=== PATIENT | female | born 2000 | race African-American/Black ===

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

== ENCOUNTER 2025-09-02 19:00 | Inpatient (IN) | payer OTHER, SELFPAY ==
[2025-09-02 19:06] VITALS: BP 122/82; BP 95/62; PULSE 110; PULSE 94; RESP 16; TEMP 37.1; O2SAT 92; O2SAT 97; BMI 23.2
--- NOTE | 2025-09-02 19:58 | ED_ITS ---
HPI - Psych General Chief Complaint: Psychiatric Symptoms Stated Complaint: SI W/PLAN ANXIOUS, SCARED Time Seen by Provider: 09/02/25 19:13 History of Present Illness ED Provider: Fredi Garcia MD HPI Narrative: 25-year-old female no diagnosed medical or psychiatric history in the past she reports SI with a plan to triage tells me she feels more hopeless ?I just Wanna not be here ?. She drinks alcohol occasionally sometimes daily wine usually symptoms you mixed drinks. 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 She tells me her family is in [employer] or nearby but he is ?toxic? she can not confide in them she has no close friends she has ?abandonment issues ?no drug uterus. She reports that she has an implanted In the left arm that she feels as . She has no acute medical symptoms today no prior psychiatric hospitalizations, no prescribed medications at all Related Data Previous Rx's ?Medication ?Instructions ?Recorded sertraline 50 mg tablet 50 mg PO DAILY 30 days #30 t abs 09/06/25 trazodone 50 mg tablet 50 mg PO BEDTIME PRN Insomni a 30 09/06/25 days #30 tabs Allergies Allergy/AdvReac Type Severity Reaction Status Date / Time No Known Allergies Allergy Verified 09/02/25 19:41 [facility] Past Medical History Medical History (Updated 09/04/25 @ 16:17 by Chang James MD) Alcohol use disorder MDD (major depressive disorder), recurrent episode, moderate Social History Social History Household Members: Other Household Members Other:: Maternal Grandmother Housing: Apartment Do you presently have visiting nurse or other home services: No Alcohol intake: current Alcohol intake frequency: other Alcohol type: wine Patient Tobacco Use Status: Current everyday Tobacco user Years Smoked: 1 e-Cigarette/Vaping Use: Currently Using service: No Sexual orientation: Straight/Heterosexual Physical Exam 2 Exam: Exam: EXAM: Gen: Alert, awake, well appearing, well hydrated. Tearful sad Head: Atraumatic Eyes: Anicteric, Normal conjunctiva. ENT: Moist mucosa, no pallor. ? Neck: Supple. Skin: ?No observable rash or bruising on exposed or examined skin Respiratory: Breathing comfortably, No distress.Clear to auscultation bilaterally, symmetric chest expansion, No wheeze, rales, ronchi. Cardiovascular: Regular rate and rhythm. No murmurs or rub. Well perfused periphery, warm extremities. No edema. ? Abdominal: No focal tenderness. Soft, no objective distension. No palpable masses or obvious organomegaly. ?No guarding, no rebound tenderness or other peritoneal findings. : No flank tenderness. Neuro: Alert. Gross movement of all extremities intact. ? Psych: Calm. Cooperative. SI, tearful hopeless. Frequent alcohol use. No diagnosed psychiatric history or hospitalizations in the past. She is housed has income is self-employed. No good support system. No close friends or partners well dressed clean MSK: No grossly visible deformity. Vital signs: See flowsheet Vital Signs: Vital Signs: Last Vital Signs Temp 98.6 F 09/06/25 08:00 Pulse 72 09/06/25 08:00 Resp 18 09/04/25 20:00 BP 111/54 L 09/06/25 08:00 Pulse Ox 97 09/06/25 08:00 O2 Del Method Room Air 09/06/25 08:00 BMI result Body Mass Index 23.2 Medications Administered Discontinued Medications Generic Name Dose Route Start Last Admin Trade Name Freq PRN Reason Stop Dose Admin Diazepam 5 mg 09/03/25 01:25 09/03/25 01:29 Diazepam 5 Mg Tablet PO 09/03/25 01:26 5 mg ONCE ONE Administration Folic Acid 1 mg 09/04/25 09:00 09/06/25 09:30 Folic Acid 1 Mg Tablet PO 1 mg DAILY KAELYN Administration Hydroxyzine HCl 25 mg 09/03/25 12:01 09/04/25 21:08 Hydroxyzine Hcl 25 Mg Tablet PO 25 mg Q6H PRN Administration mild anxiety Lorazepam 1 mg 09/03/25 12:01 09/03/25 22:23 Lorazepam 1 Mg Tablet PO 1 mg Q2H PRN Administration CIWA 6-10 Melatonin 6 mg 09/03/25 01:25 09/03/25 01:29 Melatonin 3 Mg Tablet PO 09/03/25 01:26 6 mg ONCE ONE Administration Olanzapine 5 mg 09/03/25 12:01 09/04/25 21:08 Olanzapine 5 Mg Tablet PO 5 mg TID PRN Administration agitation Sertraline HCl 25 mg 09/05/25 20:55 09/06/25 09:30 Sertraline Hcl 25 Mg Tablet PO 25 mg DAILY KAELYN Administration Thiamine HCl 100 mg 09/04/25 09:00 09/06/25 09:30 Thiamine Hcl 100 Mg Tablet PO 100 mg DAILY KAELYN Administration Trazodone HCl 50 mg 09/03/25 12:01 09/05/25 22:59 Trazodone Hcl 50 Mg Tablet PO 50 mg BEDTIME MRX1 PRN Administration Insomnia Medical Decision Making Medical Decision Making MDM Narrative: Medical Decision Makin-year-old female with depression , suicidal ideation. Medical clearance. Alcohol seems to be an issue but she is not acutely intoxicated and I see no clinical signs of withdrawal syndrome. Check lab work for electrolyte derangement or other actionable finding. No fever no vital sign abnormality. Behavioral health consult care team Preliminary Favored Differential Diagnosis: Depression, SI among additional considered etiologies Testing Interpreted Independently: ?See below for details Radiology or Lab testing Results Reviewed: ?See below for details Consults: Behavioral health team Independent Historians/External Chart Reviews: ?See below for details Social Determinants of Health Impacting MDM/Planning: ?See below for details Lab Data MDM Lab Attestation statement: I reviewed the patient's lab results. 09/02/25 19:57 09/04/25 09:51 Labs: Lab Results 09/02/25 09/02/25 Range/Units 19:56 19:57 WBC 5.6 (4.8-10.8) X10*3/uL RBC 4.70 (4.20-5.50) X10*6/uL Hgb 14.9 (12.0-16.0) g/dl Hct 43.3 (37.0-47.0) % MCV 92.1 (80.0-98.0) fL MCH 31.7 (27.0-33.0) pg MCHC 34.4 (31.0-35.0) g/dl RDW 12.2 (11.0-16.0) % Plt Count 358 (160-400) X10*3/uL MPV 8.9 L (9.4-12.3) fL Immature Gran % (Auto) 0.2 (0.0-0.4) % Neut % (Auto) 51.5 (45-73) % Lymph % (Auto) 39.4 (20-40) % [place] % (Auto) 8.0 (2-11) % Eos % (Auto) 0.4 (0-4) % Baso % (Auto) 0.5 (0-2) % Lymph # (Auto) 2.2 (1.2-4.9) X10*3/uL [place] # (Auto) 0.5 (0.1-1.2) X10*3/uL Eos # (Auto) 0.0 (0.0-0.4) X10*3/uL Baso # (Auto) 0.0 (0.0-0.2) X10*3/uL Abs Immat Gran (auto) 0.01 (0.00-0.03) X10*3/uL Absolute Neuts (auto) 2.9 (2.0-8.3) x10*3/uL Absolute Nucleated RBC 0.000 (0.0-0.012) X10*3/uL Nucleated RBC % (auto) 0.0 (0.0-0.2) /100WBC Sodium 141 (135-145) mmol/L Potassium 3.4 (3.3-5.1) mmol/L Chloride 107 (96-108) mmol/L Carbon Dioxide 21 L (22-29) mmol/L Anion Gap 16 (12-20) BUN 4 L (9-16) mg/dL Creatinine 0.60 (0.5-1.4) mg/dL Estim Creat Clear Calc 125.9 Estimated GFR > 60 Random Glucose 111 (60-115) mg/dL Calcium 9.4 (8.4-10.2) mg/dL Total Bilirubin 0.3 (0.0-1.0) mg/dL AST 30 (5-31) U/L ALT 41 H (0-31) U/L Alkaline Phosphatase 65 (39-117) U/L Total Protein 8.2 H (6.5-8.0) g/dL Albumin 5.0 (3.5-5.0) g/dL Urine Color Yellow Urine Appearance Clear Urine pH 6.5 (5.0-9.0) Ur Specific [place] <= 1.005 (1.005-1.025) Urine Protein Negative (Neg-Trace) mg/dL Urine Glucose (UA) Negative (Negative) mg/dL Urine Ketones Negative (Negative) mg/dL Urine Blood Negative (Negative) Urine Nitrite Negative (Negative) Ur Leukocyte Esterase Trace H (Negative) Urine RBC 0-2 (0-2) /HPF Urine WBC 0-5 (0-5) /HPF Ur Squamous Epith Cells 3-5 (0-2) /HPF Urine Bacteria Trace (None Seen) Hyaline Casts 0-2 (0-2) /LPF Urine Test NEGATIVE (NEGATIVE) Urine Opiates Screen Not Detected (Not Detect) Ur Buprenorphine Scrn Not Detected (Not Detect) ng/mL Ur Oxycodone Screen Not Detected (Not Detect) ng/mL Urine Methadone Screen Not Detected (Not Detect) ng/mL Urine Fentanyl Screen Not Detected (Not Detect) Ur Barbiturates Screen Not Detected (Not Detect) Ur Phencyclidine Scrn Not Detected (Not Detect) Ur Amphetamines Screen Not Detected (Not Detect) U Benzodiazepines Scrn Not Detected (Not Detect) Urine Cocaine Screen Not Detected (Not Detect) U Marijuana (THC) Screen Not Detected (Not Detect) Ethyl Alcohol 241 mg/dL Discharge Plan Discharge Clinical Impression: Suicidal ideation Patient Disposition: Admitted As Inpatient Interventions: Admission Worksheet (ED) Last Done: 09/03/25 14:07 Discharge Date/Time: 09/03/25 14:25
[2025-09-02 20:04] LABS: MANUAL DIFF FLAG NO
[2025-09-02 20:08] LABS: Appearance Urine Clear; Glucose Urine UA Negative (Negative); Hematocrit 43.3 % (37.0-47.0); Hemoglobin 14.9 g/dl (12.0-16.0); Imm Gran Abs Auto 0.01 X10*3/uL (0.00-0.03); Imm Gran Pct Auto 0.2 % (0.0-0.4); Lymphocytes Absolute Auto 2.2 X10*3/uL (1.2-4.9); Mean Corpuscular HGB Conc 34.4 g/dl (31.0-35.0); Mean Corpuscular Hemoglobin 31.7 pg (27.0-33.0); Mean Corpuscular Volume 92.1 fL (80.0-98.0); NRBC Abs Auto 0.000 X10*3/uL (0.0-0.012); NRBC Pct Auto 0.0 /100WBC (0.0-0.2); PH 6.5 (5.0-9.0); Platelet Count 358 X10*3/uL (160-400); Red Blood Count 4.70 X10*6/uL (4.20-5.50); Specific Gravity - Urine <= 1.005 (1.005-1.025); UMIC TRIGGER UACC YES; White Blood Count 5.6 X10*3/uL (4.8-10.8)
[2025-09-02 20:09] LABS: UPreg QC Valid YES
[2025-09-02 20:19] LABS: Cannabinoid Screen Urine Not Detected (Not Detect)
[2025-09-02 20:22] LABS: Alanine Aminotransferase 41 U/L (0-31); Albumin Level 5.0 g/dL (3.5-5.0); Alkaline Phosphatase 65 U/L (39-117); Anion Gap 16 (12-20); Aspartate Amino Transferase 30 U/L (5-31); Blood Urea Nitrogen 4 mg/dL (9-16); Calcium 9.4 mg/dL (8.4-10.2); Carbon Dioxide 21 mmol/L (22-29); Chloride 107 mmol/L (96-108); Creatinine Clr Calc Pharmacy 125.9; Estimated Glomerular Filt Rate > 60; Potassium 3.4 mmol/L (3.3-5.1); Sodium 141 mmol/L (135-145); Total Protein 8.2 g/dL (6.5-8.0)
--- OUTSIDE RECORDS SUMMARY | 2025-09-02 21:17 | XMS_ITS | Clinical Summary ---
Author Organization [facility] Address [address] [place] [address] Phone Care Team Providers Care Door To Door Sales Representative Name Role Phone Physician, No Pcp Primary Care Provider Unavaila ble Allergies No known active allergies Medications No known medications Social History Tobacco Use Types Packs/Day Years Used Date Smoking Tobacco: Never Smokeless Tobacco: Never Tobacco Cessation:Counseling Given: Not Answered Alcohol Use Standard Drinks/Week Comments Not Currently 0 (1 standard drink = 0.6 oz pur e alcohol) Comments Unknown Sex and Gender Information Value Date Recorded Sex Assigned at Not on file Legal Sex Female 1:48 PM EDT Gender Identity Not on file Sexual Orientation Not on file Obstetrics History Last Filed Vital Signs Vital Sign Reading Time Taken Comments Blood Pressure 116/71 03/02/2025 1:52 PM EDT Pulse 67 03/02/2025 1:52 PM EDT Temperature 36.5 C (97.7 F) 03/02/2025 1:52 PM EDT Respiratory Rate 17 03/02/2025 1:52 PM EDT Oxygen Saturation 97% 03/02/2025 1:52 PM EDT Inhaled Oxygen Concentration - - Weight 60.3 kg (133 lb) 03/02/2025 1:52 PM EDT Height 162.6 cm (5' 4 ) 03/02/2025 1:52 PM EDT Body Mass Index 22.83 03/02/2025 1:52 PM EDT Plan of Treatment Health Maintenance Due Date Last Done Comments Gonorrhea/Chlamydia Screening 2002 HPV Vaccines (1 - 3-dose series) 2017 Meningococcal B Vaccine (1 o f 2 - Standard) 2018 DTaP,Tdap,and Td Vaccines (1 - Tdap) 2021 Hepatitis B Vaccines (1 of 3 - 19+ 3-dose series) 2021 Cervical Cancer Screening: P ap Smear 2023 Depression Screening 11/04/2024 HIV Screening 03/03/2025 Hepatitis C Screening 03/03/2025 Social Influencers of Health Screening 03/03/2025 COVID-19 Vaccine (1 - 2023-2 5 season) 2025 Influenza Vaccine (#1) 2025 RSV Immunization Adult Patie nts (1 - 1-dose 75+ series) 2077 HIB Vaccines Aged Out No longer eligi ble based on patient's age to complete this topic Hepatitis A Vaccines Aged Out No long er eligible based on patient's age to complete this topic IPV Vaccines Aged Out No longer eligi ble based on patient's age to complete this topic MMR Vaccines Aged Out No longer eligi ble based on patient's age to complete this topic Meningococcal ACWY Vaccine Aged Out N o longer eligible based on patient's age to complete this topic Pneumococcal Vaccine: Pediat rics (0 to 5 Years) and At-Risk Patients (6 to 49 Years) Aged Out No longer eligible b ased on patient's age to complete this topic RSV Immunization Patients Un adria 20 months Aged Out No longer eligible b ased on patient's age to complete this topic Varicella Vaccines Aged Out No longer eligible based on patient's age to complete this topic Insurance MEDICAID - [place] Care Teams Door To Door Sales Representative Relationship Specialty Start Date End Date Physician, No Pcp PCP - General 03/02/25
[2025-09-02 21:55] VITALS: RESP 17
--- NOTE | 2025-09-03 01:36 | PC.NURSE ---
Arrived to POD for exchange specialist. Switched into appropriate attire and belongings secured in locker #5. Safety check completed with Security present. When asked what brought her in, patient stated For the last two weeks, I've been struggling with my depression and anxiety. I just don't want to live anymore, I'm really overwhelmed. I was very close to crashing my car and killing myself, but I thought about my grandmother-she is my biggest support. Endorses +SI with plan/intent. Denies HI/AVH. Denies current pain. Denies substance use. Denies current medication. Endorses daily alcohol use and states I drink a bottle of wine a day. Patient reports last drink was 2 buzzballs this AM on 09/02. Patient endorses poor sleep d/t racing thoughts and states I've struggled with this since I was a child. 15 min safety checks ongoing. CIWA ongoing, not currently scoring. Denies hx of wd/sz. Plan of care ongoing...
[2025-09-03 06:14] VITALS: BP 105/63; PULSE 77; RESP 16; TEMP 37; O2SAT 99
--- NOTE | 2025-09-03 08:02 | PC.NURSE ---
Assumed care, report received. Pt is currently sleeping, safety is maintained and she is brought breakfast.
[2025-09-03 10:20] VITALS: BP 105/66; PULSE 90; TEMP 37.2; O2SAT 96
[2025-09-03 14:30] VITALS: BP 110/74; PULSE 69; TEMP 36.6; O2SAT 99
--- NOTE | 2025-09-03 14:47 | HO.PM.IMCN ---
History of Present Illness Data of Consult Service Date: 09/03/25 Primary Care Provider: Unknown Physician HPI Reason for consult: Medical consult 25 year no past medical or psychiatric history presents with suicide open. Initial workup reveals no leukocytosis, no anemia. No electrolyte imbalances no evidence of kidney impairment, ALT slightly elevated at 41. Urine without evidence of infection. Tox screen negative, BAL 241 on admit. No evidence of withdrawal. On exam she is afraid and tearful. Denies any medical concerns. Review of Systems Review of Systems: Denies any shortness of breath, chest pain, palpitations, dizziness, lightheadedness, headaches, dysuria, abdominal pain or discomfort, nausea, vomiting or diarrhea. Denies chills, body aches, muscle aches, fatigue or weight loss. [facility] Social History Alcohol intake: current Alcohol intake frequency: other Alcohol type: wine Smoked in Last 30 Days: Yes Use of substances other than those prescribed or required for medical reasons: No Advance Directives: No Advance Directives Information Provided: No Do you have a plan to hurt others: No Plan Meds Allergies Allergy/AdvReac Type Severity Reaction Status Date / Time No Known Allergies Allergy Verified 09/02/25 19:41 Active Medications: Current Medications Acetaminophen (Acetaminophen 325 Mg Tablet) 650 mg PO Q6H PRN PRN Reason: Headache/Pain, Scale 1-10 Al Hydroxide/Mg Hydroxide (Magnesium Hydrox/Alum Hydrox 30 Ml Oral.Susp) 30 ml PO Q6H PRN PRN Reason: Heartburn/Nausea Folic Acid (Folic Acid 1 Mg Tablet) 1 mg PO DAILY KAELYN Hydroxyzine HCl (Hydroxyzine Hcl 25 Mg Tablet) 25 mg PO Q6H PRN PRN Reason: mild anxiety Lorazepam (Lorazepam 1 Mg Tablet) 1 mg PO Q2H PRN PRN Reason: CIWA 6-10 Lorazepam (Lorazepam 1 Mg Tablet) 2 mg PO Q2H PRN PRN Reason: CIWA 11 and above Magnesium Hydroxide (Milk Of Magnesia 30 Ml Oral.Susp) 30 ml PO DAILY PRN PRN Reason: Constipation Nicotine (Nicotine 21 Mg Patch.Td24) 21 mg TRANSDERMA DAILY PRN PRN Reason: smoking cessation Nicotine Polacrilex (Nicotine Polacrilex 2 Mg Gum) 4 mg BUCCAL Q2H PRN PRN Reason: Nicotine Cravings Olanzapine (Olanzapine 5 Mg Tablet) 5 mg PO TID PRN PRN Reason: agitation Thiamine HCl (Thiamine Hcl 100 Mg Tablet) 100 mg PO DAILY KAELYN Trazodone HCl (Trazodone Hcl 50 Mg Tablet) 50 mg PO BEDTIME MRX1 PRN PRN Reason: Insomnia Home Medications ?Medication ?Instructions ?Recorded ?Confirmed ?Last Taken ?Type No Known Home Meds 09/02/25 09/02/25 Unknown History Physical Exam Vital Signs and Narrative: Vital Signs: Last Vital Signs Temp 98.9 F 09/03/25 10:20 Pulse 90 09/03/25 10:20 Resp 16 09/03/25 06:14 BP 105/66 09/03/25 10:20 Pulse Ox 96 09/03/25 10:20 O2 Del Method Room Air 09/03/25 10:20 BMI result Body Mass Index 23.2 Alert and oriented X3, calm and cooperative. Answers questions. Tearful Neuro: CN II-X11 intact, no deficits, visual acuity intact EYES: PERRLA, EOM intact ENT: Hearing intact, MMM Cardiac: S1 S2 RRR, No ectopy Pulmonary: lungs clear to auscultation, No increased WOB. Abdominal: BS active in all 4 quadrants, no guarding or tenderness MSK: Strength 5/5 upper and lower extremities : Deferred Extremities: No edema in lower extremities Psych: Mood stable, Quiet and cooperative. Skin: Warm and dry, Intact Results Labs 09/02/25 19:57 09/02/25 19:56 Labs: Laboratory Results - last 24 hr 09/02/25 09/02/25 19:56 19:57 MCV 92.1 MCH 31.7 MCHC 34.4 RDW 12.2 Plt Count 358 MPV 8.9 L Immature Gran % (Auto) 0.2 Neut % (Auto) 51.5 Lymph % (Auto) 39.4 [place] % (Auto) 8.0 Eos % (Auto) 0.4 Baso % (Auto) 0.5 Lymph # (Auto) 2.2 [place] # (Auto) 0.5 Eos # (Auto) 0.0 Baso # (Auto) 0.0 Abs Immat Gran (auto) 0.01 Absolute Neuts (auto) 2.9 Absolute Nucleated RBC 0.000 Nucleated RBC % (auto) 0.0 Anion Gap 16 Estim Creat Clear Calc 125.9 Estimated GFR > 60 Random Glucose 111 Calcium 9.4 Total Bilirubin 0.3 AST 30 ALT 41 H Alkaline Phosphatase 65 Total Protein 8.2 H Albumin 5.0 Urine Color Yellow Urine Appearance Clear Urine pH 6.5 Ur Specific [place] <= 1.005 Urine Protein Negative Urine Glucose (UA) Negative Urine Ketones Negative Urine Blood Negative Urine Nitrite Negative Ur Leukocyte Esterase Trace H Urine RBC 0-2 Urine WBC 0-5 Ur Squamous Epith Cells 3-5 Urine Bacteria Trace Hyaline Casts 0-2 Urine Test NEGATIVE Urine Opiates Screen Not Detected Ur Buprenorphine Scrn Not Detected Ur Oxycodone Screen Not Detected Urine Methadone Screen Not Detected Urine Fentanyl Screen Not Detected Ur Barbiturates Screen Not Detected Ur Phencyclidine Scrn Not Detected Ur Amphetamines Screen Not Detected U Benzodiazepines Scrn Not Detected Urine Cocaine Screen Not Detected U Marijuana (THC) Screen Not Detected Ethyl Alcohol 241 Assessment and Plan (1) Suicide ideation: Status: Acute Plan 25-year-old female with a past medical history of EtOH use, no significant medical or psychiatric history presented to the ED with suicidal ideation. Suicidal ideation/? depression Treatment per psychiatric team Thank you for allowing me to participate in the care of this patient. Will follow with you, please notify medical provider with any changes in condition or concerns.
--- NOTE | 2025-09-03 18:50 | PC.ADMIT ---
Ms. Mayi Lou was admitted from the POD to M5, room 516-2 for suicidal ideation at 2pm.? She is a 25 year old SBF and this is her first psychiatric admission. According to the Crisis report and the nurse to nurse in the POD (Maribel), she has been depressed with suicidal thoughts to crash her car, and has had persistent feelings of hopelessness and worthlessness and a sense of helplessness around her ability to make change in her life.? Precipitant was the year anniversary of her mother?s on 08/13/24.? Her mother from complications from her substance abuse a year ago.? She felt she, ?had to be strong?, for her family and never processed her mother?s . She said she is no longer a support and has been drinking a bottle of wine daily and feels like a burden to her family and just wants, ?to be at peace.? Upon arrival on the unit, Mayi was cooperative with the safety and skin check, which was unremarkable. She denied active suicidal ideation and was only having, ?thoughts?. She also denied HI and AVH.? She was displeased that she was sectioned here and felt they misunderstood what she was trying to say. She declined to sign a CV and is now on a 12B with 15 minute checks. 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 She was allowed to send them a group text cancelling the appointments and declined to get any other contact numbers from her phone. Mayi lives with her maternal Grandmother who urged her to contact crisis. Mayi denies any medical issues past or present and has no known allergies. She denies other substance use other than alcohol. She does vape nicotine and has for one year.? She does not want NRT and refused Quitworks.? She declined the influenza vaccine. Mayi is on no medications and only recently obtained health insurance. She did not know the name of who will be her new PCP but does have a first appointment with them on 09/17. She does not have a therapist.
[2025-09-03 20:00] VITALS: BP 117/69; PULSE 64; RESP 18; TEMP 36.5; O2SAT 99
[2025-09-04 08:00] VITALS: BP 104/55; PULSE 76; TEMP 37.1; O2SAT 99
--- NOTE | 2025-09-04 09:21 | P.HPPS_ITS ---
HPI Date of Service: 09/04/25 Chief Complaint: SI Sources of Information: patient interviewed, chart reviewed and crisis/core team assessment reviewed HPI Subjective Notes: Frias Warning, Conditional Voluntary and Section 12B Narrative: Patient is a 25-year-old female with history of anxiety and depression, alcohol abuse who presents for making suicidal type statements while intoxicated. 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 She said this past month acharya the 1 year anniversary of her mother's and so her depression increased. She says that her drinking probably increased as well and she drinks about a bottle of wine 5/7 days a week. Patient reports this past week she was very sad and had been drinking and felt like she needed to talk to someone and get a therapist. She called crisis and then drove herself there intoxicated. While there she made some suicidal-type comment about crashing her car, not wanting to be here anymore and was thus taken to the emergency room and put on a section 12. Patient acknowledged she may have said something like this while she was drunk and maybe she did have some harmful thoughts but says when you drink... Get overwhelmed you can think bad things... But is clear that she would never hurt herself in any way and has never been suicidal; she reiterates she just wanted someone to talk to, maybe spend the night...She said she just was hoping to get connected with a therapist and is aghast that she was psychiatrically admitted. Patient agrees that she could probably use an antidepressant medication. She will consider this. Denies any SI/HI/AVH. Denies any other drug use MSE: Pt is alert and oriented; behavior is cooperative and polite on approach; otherwise tearful, isolative; patient is not in distress; dressed in casual attire and well groomed; mood is described as depressed, anxious and affect congruent, downcast and tearful; eye contact appropriate; Speech is normal rate, volume and prosody and not pressured; psychomotor retardation present; thought process is organized and goal directed; Thought content is on tx and dealing with depression and anxiety; otherwise pertinent to relevant topics and without any delusional content, paranoid ideations or grandiosity; denies any SI/HI. Denies AVH and there is no evidence of perceptual disturbance. 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; she is anxious about having to cancel her clients Patient lives with her maternal grandmother Substance History: Drinks a bottle of wine 5/7 days a week Trauma History: Defer Diagnostics Vital Signs (24Hr): Vital Signs - 24 hr 09/03/25 10:20 09/03/25 14:30 09/03/25 20:00 Temperature 98.9 F 97.8 F 97.7 F Pulse Rate 90 69 64 Respiratory Rate 18 Blood Pressure 105/66 110/74 117/69 Pulse Oximetry 96 99 99 Oxygen Delivery Method Room Air Room Air Room Air BMI result Body Mass Index 23.2 Labs 09/02/25 19:57 09/04/25 09:51 Labs: Laboratory Results - last 48 hr 09/02/25 09/02/25 19:56 19:57 WBC 5.6 RBC 4.70 Hgb 14.9 Hct 43.3 MCV 92.1 MCH 31.7 MCHC 34.4 RDW 12.2 Plt Count 358 MPV 8.9 L Immature Gran % (Auto) 0.2 Neut % (Auto) 51.5 Lymph % (Auto) 39.4 White % (Auto) 8.0 Eos % (Auto) 0.4 Baso % (Auto) 0.5 Lymph # (Auto) 2.2 White # (Auto) 0.5 Eos # (Auto) 0.0 Baso # (Auto) 0.0 Abs Immat Gran (auto) 0.01 Absolute Neuts (auto) 2.9 Absolute Nucleated RBC 0.000 Nucleated RBC % (auto) 0.0 Sodium 141 Potassium 3.4 Chloride 107 Carbon Dioxide 21 L Anion Gap 16 BUN 4 L Creatinine 0.60 Estim Creat Clear Calc 125.9 Estimated GFR > 60 Random Glucose 111 Calcium 9.4 Total Bilirubin 0.3 AST 30 ALT 41 H Alkaline Phosphatase 65 Total Protein 8.2 H Albumin 5.0 Urine Color Yellow Urine Appearance Clear Urine pH 6.5 Ur Specific [place] <= 1.005 Urine Protein Negative Urine Glucose (UA) Negative Urine Ketones Negative Urine Blood Negative Urine Nitrite Negative Ur Leukocyte Esterase Trace H Urine RBC 0-2 Urine WBC 0-5 Ur Squamous Epith Cells 3-5 Urine Bacteria Trace Hyaline Casts 0-2 Urine Test NEGATIVE Urine Opiates Screen Not Detected Ur Buprenorphine Scrn Not Detected Ur Oxycodone Screen Not Detected Urine Methadone Screen Not Detected Urine Fentanyl Screen Not Detected Ur Barbiturates Screen Not Detected Ur Phencyclidine Scrn Not Detected Ur Amphetamines Screen Not Detected U Benzodiazepines Scrn Not Detected Urine Cocaine Screen Not Detected U Marijuana (THC) Screen Not Detected Ethyl Alcohol 241 Meds/Allergies Meds Home Medications ?Medication ?Instructions ?Recorded ?Confirmed ?Type No Known Home Meds 09/02/25 09/02/25 Hi story Allergies Allergies Allergy/AdvReac Type Severity Reaction Status Date / Time No Known Allergies Allergy Verified 09/02/25 19:41 Assessment & Plan Assessment & Plan (1) MDD (major depressive disorder), recurrent episode, moderate: Status: Acute Code(s): F33.1 - Major depressive disorder, recurrent, moderate (2) Alcohol use disorder: Status: Acute Code(s): F10.90 - Alcohol use, unspecified, uncomplicated Plan Patient is a 25-year-old female with history of anxiety and depression, alcohol abuse who presents for making suicidal type statements while intoxicated. 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 She said this past month acharya the 1 year anniversary of her mother's and so her depression increased. She says that her drinking probably increased as well and she drinks about a bottle of wine 5/7 days a week. Patient reports this past week she was very sad and had been drinking and felt like she needed to talk to someone and get a therapist. She called crisis and then drove herself there intoxicated. While there she made some suicidal-type comment about crashing her car, not wanting to be here anymore and was thus taken to the emergency room and put on a section 12. Patient acknowledged she may have said something like this while she was drunk and maybe she did have some harmful thoughts but says when you drink... Get overwhelmed you can think bad things... But is clear that she would never hurt herself in any way and has never been suicidal; she reiterates she just wanted someone to talk to, maybe spend the night...She said she just was hoping to get connected with a therapist and is aghast that she was psychiatrically admitted. Patient agrees that she could probably use an antidepressant medication. She will consider this. Denies any SI/HI/AVH. Denies any other drug use Formulation/clinical reasoning: Patient tearful and still wrapping her mind around the fact that she is on a locked psychiatric unit. Does not want to sign in. Says that she would not ready to discuss medications at will consider it and needs some time to just adjust to being on the unit. Patient denies any history of alcohol withdrawal Plan: Twelve B Q 15 minute checks CIWA for now Monitor Gather collateral Patient educated on: diagnosis, substance abuse and therapeutic strategies Informed Consent: understands and further education needed Reason for continued inpatient stay Substantial Risk for: rapid decompensation Statement Statement: I have reviewed the history and physical and performed a pertinent examination on my patient. No changes have occurred unless specified. If the History and Physical was not performed prior to admission, the Hospitalist's service will be consulted for completing the admission physical. Time Spent With Patient Time: Total time managing care of this patient today ____ minutes.
[2025-09-04 10:57] LABS: Hemoglobin A1C 67.4988 umol/L; Total Hemoglobin (HGBA1C) 2254.3140 umol/L
[2025-09-04 11:15] LABS: Albumin Level 4.2 g/dL (3.5-5.0); Alkaline Phosphatase 54 U/L (39-117); Anion Gap 14 (12-20); Aspartate Amino Transferase 26 U/L (5-31); Blood Urea Nitrogen 7 mg/dL (9-16); Calcium 9.3 mg/dL (8.4-10.2); Carbon Dioxide 24 mmol/L (22-29); Chloride 106 mmol/L (96-108); Cholesterol 203 mg/dL (<200); Creatinine Clr Calc Pharmacy 96.8; Estimated Glomerular Filt Rate > 60; HDL Cholesterol 75 mg/dL (>40); Potassium 3.5 mmol/L (3.3-5.1); Sodium 140 mmol/L (135-145); Total Protein 6.8 g/dL (6.5-8.0); Triglycerides 84 mg/dL (<150)
[2025-09-04 11:32] LABS: Alanine Aminotransferase 29 U/L (0-31)
[2025-09-04 12:00] VITALS: BP 107/54; PULSE 78
[2025-09-04 20:00] VITALS: BP 113/60; PULSE 77; RESP 18; TEMP 36.6; O2SAT 100
[2025-09-05 08:16] VITALS: BP 101/50; PULSE 58; TEMP 36.2; O2SAT 99
--- NOTE | 2025-09-05 10:46 | HO.PSYCHPN ---
Subjective Subjective Date of Service: 09/05/25 Reason For Visit: SI Interim History: Met with patient; discussed with team Patient reports that she appreciates conversation yesterday and has we thought about things and agrees that it was a good idea for her to come to the inpatient hospital. She still hopes to discharge soon but agrees that she is at a crossroads for several things, worsening depression versus getting treatment, alcoholism versus stability. Patient notices how it is affecting her relationships and that she has a hard time making friendships and keeping them; also that her depression and drinking have interfered with work. Patient shared about her history of depression which includes episodes where depressed and can be severe; seems to have started in high school and continued with episodes lasting 1-2 weeks typically every month. Not a lot of obvious anxiety but shared about going up with mother who was an alcoholic and father who was absent and how she feels she has abandonment issues; she is very grateful for her maternal grandmother with whom she feels is her mother figure and with whom she still lives. Discussed medications, risks/side effects and patient agrees to start on Zoloft. Substance abuse treatment and risks discussed with patient who at this time patient declines MAT or help with outpt treatment options including programs; instead patient is choosing to work out sobriety on own MSE Pt is alert and oriented; behavior is cooperative, friendly and calm; patient is not in distress; dressed in casual attire, well-groomed; mood is described as better and affect congruent; eye contact appropriate; Speech is normal rate, volume and prosody and not pressured; no psychomotor agitation/retardation present; thought process is organized and goal directed; Thought content is on tx; otherwise pertinent to relevant topics and without any delusional content, paranoid ideations or grandiosity; denies any SI/HI. Denies AVH and there is no evidence of perceptual disturbance. Patients insight and judgment appear intact. Diagnostics Vital Signs (24Hr): Vital Signs - 24 hr 09/04/25 12:00 09/04/25 20:00 09/05/25 08:16 Temperature 98 F 97.1 F Pulse Rate 78 77 58 Respiratory Rate 18 Blood Pressure 107/54 L 113/60 101/50 L Pulse Oximetry 100 99 Oxygen Delivery Method Room Air Room Air BMI result Body Mass Index 23.2 Labs 09/02/25 19:57 09/04/25 09:51 Labs: Laboratory Results - last 48 hr 09/04/25 09:51 Sodium 140 Potassium 3.5 Chloride 106 Carbon Dioxide 24 Anion Gap 14 BUN 7 L Creatinine 0.78 Estim Creat Clear Calc 96.8 Estimated GFR > 60 Random Glucose 153 H Estimat Average Glucose 94 Hemoglobin A1c % 4.9 Calcium 9.3 Total Bilirubin 0.5 AST 26 ALT 29 Alkaline Phosphatase 54 Total Protein 6.8 Albumin 4.2 Triglycerides 84 Cholesterol 203 H LDL Cholesterol, Calc 112 H HDL Cholesterol 75 TSH 0.74 Medications Medications Current Medications Acetaminophen (Acetaminophen 325 Mg Tablet) 650 mg PO Q6H PRN PRN Reason: Headache/Pain, Scale 1-10 Al Hydroxide/Mg Hydroxide (Magnesium Hydrox/Alum Hydrox 30 Ml Oral.Susp) 30 ml PO Q6H PRN PRN Reason: Heartburn/Nausea Folic Acid (Folic Acid 1 Mg Tablet) 1 mg PO DAILY COUNT INCLUDES THE [facility] Last Admin: 09/05/25 09:04 Dose: 1 mg Hydroxyzine HCl (Hydroxyzine Hcl 25 Mg Tablet) 25 mg PO Q6H PRN PRN Reason: mild anxiety Last Admin: 09/04/25 21:08 Dose: 25 mg Lorazepam (Lorazepam 1 Mg Tablet) 1 mg PO Q2H PRN PRN Reason: CIWA 6-10 Last Admin: 09/03/25 22:23 Dose: 1 mg Lorazepam (Lorazepam 1 Mg Tablet) 2 mg PO Q2H PRN PRN Reason: CIWA 11 and above Magnesium Hydroxide (Milk Of Magnesia 30 Ml Oral.Susp) 30 ml PO DAILY PRN PRN Reason: Constipation Nicotine (Nicotine 21 Mg Patch.Td24) 21 mg TRANSDERMA DAILY PRN PRN Reason: smoking cessation Nicotine Polacrilex (Nicotine Polacrilex 2 Mg Gum) 4 mg BUCCAL Q2H PRN PRN Reason: Nicotine Cravings Olanzapine (Olanzapine 5 Mg Tablet) 5 mg PO TID PRN PRN Reason: agitation Last Admin: 09/04/25 21:08 Dose: 5 mg Thiamine HCl (Thiamine Hcl 100 Mg Tablet) 100 mg PO DAILY KAELYN Last Admin: 09/05/25 09:04 Dose: 100 mg Trazodone HCl (Trazodone Hcl 50 Mg Tablet) 50 mg PO BEDTIME MRX1 PRN PRN Reason: Insomnia Last Admin: 09/04/25 21:08 Dose: 50 mg Allergies Allergies Allergy/AdvReac Type Severity Reaction Status Date / Time No Known Allergies Allergy Verified 09/02/25 19:41 Assessment & Plan Assessment & Plan (1) MDD (major depressive disorder), recurrent episode, moderate: Status: Acute Code(s): F33.1 - Major depressive disorder, recurrent, moderate (2) Alcohol use disorder: Status: Acute Code(s): F10.90 - Alcohol use, unspecified, uncomplicated Plan Patient is a 25-year-old female with history of anxiety and depression, alcohol abuse who presents for making suicidal type statements while intoxicated. 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 She said this past month acharya the 1 year anniversary of her mother's and so her depression increased. She says that her drinking probably increased as well and she drinks about a bottle of wine 5/7 days a week. Patient reports this past week she was very sad and had been drinking and felt like she needed to talk to someone and get a therapist. She called crisis and then drove herself there intoxicated. While there she made some suicidal-type comment about crashing her car, not wanting to be here anymore and was thus taken to the emergency room and put on a section 12. Patient acknowledged she may have said something like this while she was drunk and maybe she did have some harmful thoughts but says when you drink... Get overwhelmed you can think bad things... But is clear that she would never hurt herself in any way and has never been suicidal; she reiterates she just wanted someone to talk to, maybe spend the night...She said she just was hoping to get connected with a therapist and is aghast that she was psychiatrically admitted. Patient agrees that she could probably use an antidepressant medication. She will consider this. Denies any SI/HI/AVH. Denies any other drug use Formulation/clinical reasoning: Patient tearful and still wrapping her mind around the fact that she is on a locked psychiatric unit. Does not want to sign in. Says that she would not ready to discuss medications at will consider it and needs some time to just adjust to being on the unit. Patient denies any history of alcohol withdrawal 09/05 Patient reports that she appreciates conversation yesterday and has we thought about things and agrees that it was a good idea for her to come to the inpatient hospital. She still hopes to discharge soon but agrees that she is at a crossroads for several things, worsening depression versus getting treatment, alcoholism versus stability. Patient notices how it is affecting her relationships and that she has a hard time making friendships and keeping them; also that her depression and drinking have interfered with work. Patient shared about her history of depression which includes episodes where depressed and can be severe; seems to have started in high school and continued with episodes lasting 1-2 weeks typically every month. Not a lot of obvious anxiety but shared about going up with mother who was an alcoholic and father who was absent and how she feels she has abandonment issues; she is very grateful for her maternal grandmother with whom she feels is her mother figure and with whom she still lives. Discussed medications, risks/side effects and patient agrees to start on Zoloft. 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 Patient expresses gratitude for help and looking forward to meeting with social services manager tomorrow who can set up for aftercare. Otherwise she is hoping to discharge as soon as possible; typewriter assembler agrees that patient patient is appropriate to return to the community for treatment will proceed with discharge plans tomorrow. Plan: Twelve B Q 15 minute checks Start Zoloft 25 mg CIWA for now Monitor Gather collateral Patient educated on: diagnosis, medication risk/benefits, substance abuse and therapeutic strategies Informed Consent: understands Reason for continued inpatient stay Substantial Risk for: stable for discharge Time Spent With Patient Time: Total time managing care of this patient today ____ minutes.
[2025-09-05 20:00] VITALS: BP 100/57; PULSE 70; TEMP 36.8; O2SAT 100
[2025-09-06 08:00] VITALS: BP 111/54; PULSE 72; TEMP 37; O2SAT 97
--- NOTE | 2025-09-06 11:36 | P.DS_ITS ---
DS: Providers Provider Date of Service: 09/06/25 Date of admission: 09/03/25 12:01 Date of discharge: 09/06/25 Primary care physician: Unknown Physician Attending physician on admission: Chang James Attending physician on discharge: Chang James DS: Diagnosis Discharge Diagnosis (1) MDD (major depressive disorder), recurrent episode, moderate: Status: Acute (2) Alcohol use disorder: Status: Acute DS: Medications Discharge Medications Home Medications: Previous Rx's ?Medication ?Instructions ?Recorded sertraline 50 mg tablet 50 mg PO DAILY 30 days #30 t abs 09/06/25 trazodone 50 mg tablet 50 mg PO BEDTIME PRN Insomni a 30 09/06/25 days #30 tabs Mental Status Exam Mental Status Exam Narrative: Pt is alert and oriented; behavior is cooperative, friendly and calm; patient is not in distress; dressed in casual attire and well-groomed; mood is described as better and affect congruent; eye contact appropriate; Speech is normal rate, volume and prosody and not pressured; no psychomotor agitation/retardation present; thought process is organized and goal directed; Thought content is on tx; otherwise pertinent to relevant topics and without any delusional content, paranoid ideations or grandiosity; denies any SI/HI. Denies AVH and there is no evidence of perceptual disturbance. Patients insight and judgment fair Data Data Completed and Pending Completed studies during hospitalization [Text1]: 09/02/25 09/02/25 09/04/25 19:56 19:57 09:51 WBC 5.6 RBC 4.70 Hgb 14.9 Hct 43.3 MCV 92.1 MCH 31.7 MCHC 34.4 RDW 12.2 Plt Count 358 MPV 8.9 L Immature Gran % (Auto) 0.2 Neut % (Auto) 51.5 Lymph % (Auto) 39.4 Henderson % (Auto) 8.0 Eos % (Auto) 0.4 Baso % (Auto) 0.5 Lymph # (Auto) 2.2 Henderson # (Auto) 0.5 Eos # (Auto) 0.0 Baso # (Auto) 0.0 Abs Immat Gran (auto) 0.01 Absolute Neuts (auto) 2.9 Absolute Nucleated RBC 0.000 Nucleated RBC % (auto) 0.0 Sodium 141 140 Potassium 3.4 3.5 Chloride 107 106 Carbon Dioxide 21 L 24 Anion Gap 16 14 BUN 4 L 7 L Creatinine 0.60 0.78 Estim Creat Clear Calc 125.9 96.8 Estimated GFR > 60 > 60 Random Glucose 111 153 H Estimat Average Glucose 94 Hemoglobin A1c % 4.9 Calcium 9.4 9.3 Total Bilirubin 0.3 0.5 AST 30 26 ALT 41 H 29 Alkaline Phosphatase 65 54 Total Protein 8.2 H 6.8 Albumin 5.0 4.2 Triglycerides 84 Cholesterol 203 H LDL Cholesterol, Calc 112 H HDL Cholesterol 75 TSH 0.74 Urine Color Yellow Urine Appearance Clear Urine pH 6.5 Ur Specific Stephenson <= 1.005 Urine Protein Negative Urine Glucose (UA) Negative Urine Ketones Negative Urine Blood Negative Urine Nitrite Negative Ur Leukocyte Esterase Trace H Urine RBC 0-2 Urine WBC 0-5 Ur Squamous Epith Cells 3-5 Urine Bacteria Trace Hyaline Casts 0-2 Urine Test NEGATIVE Urine Opiates Screen Not Detected Ur Buprenorphine Scrn Not Detected Ur Oxycodone Screen Not Detected Urine Methadone Screen Not Detected Urine Fentanyl Screen Not Detected Ur Barbiturates Screen Not Detected Ur Phencyclidine Scrn Not Detected Ur Amphetamines Screen Not Detected U Benzodiazepines Scrn Not Detected Urine Cocaine Screen Not Detected U Marijuana (THC) Screen Not Detected Ethyl Alcohol 241 DS: Summary Hospital Course Hospital Course: HPI: Patient is a 25-year-old female with history of anxiety and depression, alcohol abuse who presents for making suicidal type statements while intoxicated. 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 She said this past month acharya the 1 year anniversary of her mother's and so her depression increased. She says that her drinking probably increased as well and she drinks about a bottle of wine 5/7 days a week. Patient reports this past week she was very sad and had been drinking and felt like she needed to talk to someone and get a therapist. She called crisis and then drove herself there intoxicated. While there she made some suicidal-type comment about crashing her car, not wanting to be here anymore and was thus taken to the emergency room and put on a section 12. Patient acknowledged she may have said something like this while she was drunk and maybe she did have some harmful thoughts but says when you drink... Get overwhelmed you can think bad things... But is clear that she would never hurt herself in any way and has never been suicidal; she reiterates she just wanted someone to talk to, maybe spend the night...She said she just was hoping to get connected with a therapist and is aghast that she was psychiatrically admitted. Patient agrees that she could probably use an antidepressant medication. She will consider this. Denies any SI/HI/AVH. Denies any other drug use Hospital course: On admission, patient reports depression anxiety; however she denied any SI at all and reiterated that she would never hurt herself and whatever was said was just loose talk in the context of depression and alcohol. Patient polite, cooperative and appropriate however tearful and still wrapping her mind around the fact that she is on a locked psychiatric unit. Does not want to sign in and wants to discharge as soon as possible, wanting to get back to her business and client's. Patient denies any history of alcohol withdrawal and does not feel in withdrawal; CIWA started but proved unnecessary. After patient had chest settle end, she was able to open up more about her history of depression and anxiety and dynamic growing up. She self reflected and consider that things discussed and volunteered that she now agrees that it was a good idea for her to come to the inpatient hospital. She still hopes to discharge soon but agrees that she is at a crossroads for several things, worsening depression versus getting treatment, alcoholism versus stability. Patient notices how it is affec ting her relationships and that she has a hard time making friendships and keeping them; also that her depression and drinking have interfered with work. She is eager to start treatment, saying she does not want to go into the new year in this same frame of mind and wants to turn things around including her depressive symptoms, her struggles with relationships and struggles with alcohol, wanting to pursue sobriety. Patient shared about her gratitude for the support of her maternal grandmother, who raised her and with whom she still lives. Discussed medications, risks/side effects and patient agrees to start on Zoloft which was well tolerated; patient also appreciated trazodone for sleep. Regarding substance abuse, this was discussed and at this time patient declines MAT or help with outpt treatment options including programs; instead patient is choosing to work out sobriety on own. Patient still was hoping to discharge soon, feeling safe, eager to get back to work and ready to engage in outpatient treatment; patient did however agree to remain on the unit to meet with social workers to help set up aftercare. Tap [employer] agree that patient had returned to baseline and that she was not in imminent risk for harm to self or others and appropriate to return to the community for treatment. Request for discharge honored. Medication: Started Zoloft 50 mg Started trazodone 50 mg p.r.n. q.h.s. Time spent discussing smoking cessation with patient: 3 to 10 minutes Status at Discharge Functional status at discharge: independent ambulation Overall status at discharge: patient is back to baseline Time Spent with Patient Time attestation: Total time managing care of this patient today _40___ minutes. 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 Referrals: [facility] [Other] - 09/07/25 4:30 pm Referral Note: Hospital discharge appointment Appointment in person at [facility] in [place] Physician,Abelino Roblero [Primary Care Provider, Medical] - 1 Week Discharge Medications: New trazodone 50 mg Tablet 50 mg PO BEDTIME PRN (Reason: Insomnia) 30 Days Qty: 30 1RF sertraline 50 mg tablet 50 mg PO DAILY 30 Days Qty: 30 1RF Discharge Orders: Discharge Order (Routine); Ordered 09/06/25 Ordered By: Chang James Diet: Regular diet Activity on Discharge: As tolerated Stand Alone Forms: Patient Portal Discharge page, Community Support Print Language: Thai Care Plan Goals: Maintain mood and safe behaviors Take medications as prescribed Continue to pursue sobriety Practice coping skills Continue with outpatient providers and reach out to them as needed Health Concerns: Mood stability and behaviors Sobriety Plan of Treatment: Follow up with your PCP, psychiatric provider and other outpatient providers regarding above concerns Take medications as prescribed Assessment: Risk assessment at time of discharge:? Patient was interviewed prior to discharge and found to be fully oriented and without any SI or HI. Patient has improved insight and judgment and wants to continue treatment. Patient is not in imminent risk of harm to self or others and has a safety plan that includes presenting to the closest ER or calling 911 if feeling unsafe.? Patient has been observed closely by nursing and unit staff throughout admission; patient has not engaged in any behaviors that suggest dangerousness to self or others and has demonstrated appropriate behaviors and impulse control
== END 2025-09-06 14:00 | disposition home or self-care (01) | DRG 751 ==
LOC: HO.ED 21:14 → HO.PM5 09-03 12:52
PROVIDERS: Admitting Provider Psychiatry & Neurology Psychiatry; Emergency Provider Emergency Medicine; Visit Provider Psychiatry & Neurology Psychiatry
DX: F33.1 Major depressive disorder, recurrent, moderate (principal); R45.851 Suicidal ideations; F17.210 Nicotine dependence, cigarettes, uncomplicated; F10.90 Alcohol use, unspecified, uncomplicated; Z71.6 Tobacco abuse counseling; Y90.8 Blood alcohol level of 240 mg/100 ml or more; Z79.899 Other long term (current) drug therapy
CPT/HCPCS: 36415; 80053; 80061; 80307; 81001; 81025; 83036; 84443; 85025; 99285; S9485

== ENCOUNTER → 2025-09-03 12:01 | Outpatient (BNV) | payer OTHER, SELFPAY | PROVIDERS: Admitting Provider Psychiatry & Neurology Psychiatry; Emergency Provider Emergency Medicine; Visit Provider Psychiatry & Neurology Psychiatry | DX: F33.1 Major depressive disorder, recurrent, moderate (principal); F10.90 Alcohol use, unspecified, uncomplicated | CPT/HCPCS: 99232 ==

== ENCOUNTER → 2025-09-03 12:01 | Outpatient (BNV) | payer OTHER, SELFPAY | PROVIDERS: Admitting Provider Psychiatry & Neurology Psychiatry; Emergency Provider Emergency Medicine; Visit Provider Nurse Practitioner Family | DX: R45.851 Suicidal ideations (principal) | CPT/HCPCS: 99221 ==